=== PATIENT | female | born 1945 | race Caucasian/White ===

== ENCOUNTER 2019-12-23 09:50 | Emergency (ER) | payer MEDICARE, MEDICAID, SELFPAY ==
[2019-12-23 10:09] VITALS: BP 132/86; PULSE 76; RESP 18; TEMP 36.7; O2SAT 97; BMI 36.3
--- NOTE | 2019-12-23 10:12 | XR_ITS ---
EXAMINATION: XR CHEST CLINICAL INFORMATION: Weakness COMPARISON: 10/07/2019 TECHNIQUE: Frontal view of the chest was obtained. FINDINGS: The lungs are well expanded. There is no focal consolidation, edema, or effusion. Bronchial wall thickening is noted. No pneumothorax. The cardiomediastinal silhouette is within normal limits. No acute osseous abnormality. XR/XR chest 1V IMPRESSION: No consolidation. Bronchial wall thickening can be seen with a small airways process such as asthma or atypical/viral infection.
--- NOTE | 2019-12-23 10:12 | ECG_ITS ---
Test Reason : ABD PAIN Blood Pressure : / mmHG Vent. Rate : 058 BPM Atrial Rate : 058 BPM P-R Int : 198 ms QRS Dur : 076 ms QT Int : 486 ms P-R-T Axes : 031 024 095 degrees QTc Int : 477 ms Sinus bradycardia Nonspecific T wave abnormality Abnormal ECG When compared with ECG of 26-JUN-2019 10:36, No significant change was found Referred By: Jacklyn Travis Electronically Signed By:NORRIS INTERIANO MD
--- NOTE | 2019-12-23 10:15 | ED.NAVMDI ---
HPI - Nausea/Vomiting/Diarrhea General Chief complaint: General Medical Stated complaint: SHAKY,BODYACHES,DIARRHEA Time Seen by Provider: 12/23/19 10:11 Source: patient Mode of arrival: ambulatory Limitations: no limitations History of Present Illness MD elicited complaint: nausea and other (body aches, chills) Onset (ago): day(s) (3) Associated nausea: Yes Associated abdominal pain: No Pain consistency: constant Severity: moderate Exacerbating factors: eating Relieving factors: none Associated symptoms: myalgias, fever/chills, loss of appetite, malaise and nausea/vomiting Related Data Previous Rx's Medication Instructions Recorded ondansetron 4 mg PO Q8H PRN #20 tab 12/23/19 Allergies Allergy/AdvReac Type Severity Reaction Status Date / Time quetiapine [Seroquel] Allergy Unknown hives Verified 10/09/19 00:00 solifenacin [From VESICARE] Allergy Unknown DOESNT Verified 12/23/19 10:14 FEEL GOOD DAIRY PRODUCTS Allergy Unknown DIARRHEA Uncoded 10/24/19 14:45 Flonase Allergy Unknown bloody nose Uncoded 10/09/19 00:00 From SEROQUEL Allergy Unknown HIVES Uncoded 10/24/19 14:45 ICE CREAM Allergy Unknown DIARRHEA Uncoded 10/24/19 14:45 Review of Systems Review of Systems: Constitutional : No Weight loss, No Fever, pos Chills, pos malaise ENT/Mouth : No sore throat, No Rhinorrhea Eyes: No Swelling, No Redness Cardiovascular : No Chest Pain, No SOB, NoEdema Respiratory : No Cough, No Sputum, No Wheezing Gastrointestinal : Positive Nausea, noVomiting, no Diarrhea, no abdominal Pain, No Hematochezia, No Melena Genitourinary : No Dysuria, No Urinary Frequency, No Hematuria, No Urgency Musculoskeletal : No joint pain, No Myalgias, No Joint Swelling Skin : No Skin Lesions, No rash Neuro : No Weakness, No Numbness, No Dizziness, No Headache Psych : No Anxiety/Panic, No Depression Heme/Lymph: No Bruising, No Lymphadenopathy Endocrine : No Polyuria, No Polydipsia All other systems reviewed and are negative. Gastrointestinal: Gastrointestinal: Reports nausea PMFSH Past Medical History Attestation statement: The following information was validated with the patient. Medical History (Updated 12/23/19 @ 12:33 by Jacklyn Travis DO) Anxiety Depression GERD (gastroesophageal reflux disease) Hiatal hernia Vitamin D deficiency Surgical History (Updated 12/23/19 @ 10:16 by Jacklyn Travis DO) Hx of cholecystectomy Social History Social History (Updated 12/23/19 @ 10:17 by Jacklyn Travis DO) Alcohol intake: never Smoking Status: Never smoker Use of substances other than those prescribed or required for medical reasons: No Advance Directives: No Advance Directives Information Provided: No Physical Exam Vital Signs: Vital Signs: Last Vital Signs Temp 98.0 F 12/23/19 11:28 Pulse 58 12/23/19 11:28 Resp 24 H 12/23/19 11:28 BP 127/82 12/23/19 11:28 Pulse Ox 96 12/23/19 11:28 Body Mass Index 36.3 Appearance: Alert. Oriented X3. No acute distress. Anxious Eyes: Pupils equal, round and reactive to light. ENT: Pharynx normal. Neck: Normal inspection. Neck supple. CVS: Normal heart rate and rhythm. Pulses normal. Respiratory: No respiratory distress. Breath sounds normal. Abdomen: Soft and nontender. Skin: Skin warm and dry. Normal skin color. Normal skin turgor. Extremities: No lower extremity edema. No calf ttp Neuro: Oriented X 3. No motor deficit. No sensory deficit. Course Course Course Narrative: unremarkable, tolerating PO will send home with precautions, benign abdominal exam MDM - Nausea/Vomiting/Diarrhea MDM Narrative Medical decision making narrative: 74 yo female c/o body aches, malaise and nausea no vomiting/abdominal pain/diarrhea - not toxic, benign abdominal exam at this time will obtain labs, UA, COVID swab, CXR - dispo per results and findings Lab Data Result diagrams: 12/23/19 10:23 12/23/19 10:23 Labs: Lab Results 12/23/19 12/23/19 12/23/19 Range/Units 10:23 10:23 10:23 WBC 5.3 (4.8-10.8) X10*3/uL RBC 4.92 (4.20-5.50) X10*6/uL Hgb 13.6 (12.0-16.0) g/dl Hct 41.7 (37-47) % MCV 84.8 (80-98) fL MCH 27.6 (27.0-33.0) pg MCHC 32.6 (31.0-35.0) g/dl RDW 12.3 (11.0-16.0) % Plt Count 234 (160-400) X10*3/uL MPV 8.8 L (9.4-12.3) fL Immature Gran % (Auto) 0.2 (0.0-0.4) % Neut % (Auto) 50.6 (45-73) % Lymph % (Auto) 39.4 (20-40) % [place] % (Auto) 6.5 (2-11) % Eos % (Auto) 2.5 (0-4) % Baso % (Auto) 0.8 (0-2) % Lymph # (Auto) 2.1 (1.2-4.9) X10*3/uL [place] # (Auto) 0.3 (0.1-1.2) X10*3/uL Eos # (Auto) 0.1 (0.0-0.4) X10*3/uL Baso # (Auto) 0.0 (0.0-0.2) X10*3/uL Abs Immat Gran (auto) 0.01 (0.00-0.03) X10*3/uL Absolute Neuts (auto) 2.7 (2.0-8.3) X10*3/uL Absolute Nucleated RBC 0.000 (0.0-0.012) X10*3/uL Nucleated RBC % (auto) 0.0 (0.0-0.2) /100WBC Hold Blue Top SEE NOTE Sodium 138 (135-145) mmol/L Potassium 3.8 (3.3-5.1) mmol/l Chloride 105 (96-108) mmol/L Carbon Dioxide 23 (22-29) mmol/L Anion Gap 14 (12-20) BUN 13 (9-16) mg/dL Creatinine 1.12 (0.5-1.4) mg/dL Estim Creat Clear Calc 47.7 Estimated GFR 48 Random Glucose 116 H (60-115) mg/dL Calcium 8.7 (8.4-10.2) mg/dL Magnesium 1.9 (1.6-2.6) mg/dL Total Bilirubin 0.6 (0.0-1.0) mg/dL Direct Bilirubin 0.2 (0.0-0.5) mg/dL AST 24 (5-31) U/L ALT 19 (0-31) U/L Alkaline Phosphatase 59 (39-117) U/L Total Protein 6.8 (6.5-8.0) g/dL Albumin 3.9 (3.5-5.0) g/dL Lipase 20 (8-78) U/L Urine Color Urine Appearance Urine pH (5.0-8.0) Ur Specific [place] (1.005-1.025) Urine Protein (NEG-TRACE) MG/DL Urine Glucose (UA) (NEG) MG/DL Urine Ketones (NEG) MG/DL Urine Blood (NEG) Urine Nitrite (NEG) Ur Leukocyte Esterase (NEG) 12/23/19 Range/Units 11:33 WBC (4.8-10.8) X10*3/uL RBC (4.20-5.50) X10*6/uL Hgb (12.0-16.0) g/dl Hct (37-47) % MCV (80-98) fL MCH (27.0-33.0) pg MCHC (31.0-35.0) g/dl RDW (11.0-16.0) % Plt Count (160-400) X10*3/uL MPV (9.4-12.3) fL Immature Gran % (Auto) (0.0-0.4) % Neut % (Auto) (45-73) % Lymph % (Auto) (20-40) % [place] % (Auto) (2-11) % Eos % (Auto) (0-4) % Baso % (Auto) (0-2) % Lymph # (Auto) (1.2-4.9) X10*3/uL [place] # (Auto) (0.1-1.2) X10*3/uL Eos # (Auto) (0.0-0.4) X10*3/uL Baso # (Auto) (0.0-0.2) X10*3/uL Abs Immat Gran (auto) (0.00-0.03) X10*3/uL Absolute Neuts (auto) (2.0-8.3) X10*3/uL Absolute Nucleated RBC (0.0-0.012) X10*3/uL Nucleated RBC % (auto) (0.0-0.2) /100WBC Hold Blue Top Sodium (135-145) mmol/L Potassium (3.3-5.1) mmol/l Chloride (96-108) mmol/L Carbon Dioxide (22-29) mmol/L Anion Gap (12-20) BUN (9-16) mg/dL Creatinine (0.5-1.4) mg/dL Estim Creat Clear Calc Estimated GFR Random Glucose (60-115) mg/dL Calcium (8.4-10.2) mg/dL Magnesium (1.6-2.6) mg/dL Total Bilirubin (0.0-1.0) mg/dL Direct Bilirubin (0.0-0.5) mg/dL AST (5-31) U/L ALT (0-31) U/L Alkaline Phosphatase (39-117) U/L Total Protein (6.5-8.0) g/dL Albumin (3.5-5.0) g/dL Lipase (8-78) U/L Urine Color YELLOW Urine Appearance CLEAR Urine pH 6.5 (5.0-8.0) Ur Specific [place] <= 1.005 (1.005-1.025) Urine Protein NEG (NEG-TRACE) MG/DL Urine Glucose (UA) NEG (NEG) MG/DL Urine Ketones NEG (NEG) MG/DL Urine Blood NEG (NEG) Urine Nitrite NEG (NEG) Ur Leukocyte Esterase NEG (NEG) ECG Data Attestation: I personally reviewed and interpreted this ECG as follows: ECG interpretation date: 12/23/19 ECG interpretation time: 10:49 Interpretation: Rate: 58 Rhythm: sinus bradycardia [place]: normal Normal P waves. Normal [place]. Normal QRS complex. ST T wave : nonspecific qTC: normal prior studies: no acute ischemia The study has been interpreted contemporaneously by me. . Discharge Plan Discharge Clinical Impression: Nausea, Viral infection Patient Disposition: Home, Self-Care Instructions: Acute Nausea and Vomiting (ED), Viral Syndrome (ED) Additional Instructions: return to ED for any worsening symptoms or concerns you were tested for COVID we will call you with results in 2 to 4 days, wear a mask, socially distance Prescriptions: New ondansetron 4 mg tablet,disintegrating 4 mg PO Q8H PRN (Reason: nausea and vomiting) Qty: 20 RF: 0 Referrals: Tavares Rose MD [Primary Care Provider] - 2 days (if not better)
[2019-12-23 10:29] LABS: MANUAL DIFF FLAG NO
[2019-12-23 10:31] LABS: Basophils Percent Auto 0.8 % (0-2); Eosinophils Absolute Auto 0.1 X10*3/uL (0.0-0.4); Eosinophils Percent Auto 2.5 % (0-4); Hematocrit 41.7 % (37-47); Hemoglobin 13.6 g/dl (12.0-16.0); Imm Gran Abs Auto 0.01 X10*3/uL (0.00-0.03); Imm Gran Pct Auto 0.2 % (0.0-0.4); Lymphocytes Absolute Auto 2.1 X10*3/uL (1.2-4.9); Lymphocytes Percent Auto 39.4 % (20-40); Mean Corpuscular HGB Conc 32.6 g/dl (31.0-35.0); Mean Corpuscular Hemoglobin 27.6 pg (27.0-33.0); Mean Corpuscular Volume 84.8 fL (80-98); Mean Platelet Volume 8.8 fL (9.4-12.3); Monocytes Absolute Auto 0.3 X10*3/uL (0.1-1.2); Monocytes Percent Auto 6.5 % (2-11); Neutrophils Absolute Auto 2.7 X10*3/uL (2.0-8.3); Neutrophils Percent Auto 50.6 % (45-73); Platelet Count 234 X10*3/uL (160-400); Red Blood Count 4.92 X10*6/uL (4.20-5.50); Red Cell Distribution Width 12.3 % (11.0-16.0); White Blood Count 5.3 X10*3/uL (4.8-10.8)
[2019-12-23] MEDS: ondansetron HCL 4 MG/2 ML VIAL IVPUSH (10:36)
[2019-12-23] MEDS: 0.9 % Sodium Chloride 1,000 ML 999 ML IVCONT (10:36)
[2019-12-23 11:05] LABS: Alanine Aminotransferase 19 U/L (0-31); Albumin Level 3.9 g/dL (3.5-5.0); Alkaline Phosphatase 59 U/L (39-117); Anion Gap 14 (12-20); Aspartate Amino Transferase 24 U/L (5-31); Bilirubin Direct 0.2 mg/dL (0.0-0.5); Bilirubin Total 0.6 mg/dL (0.0-1.0); Blood Urea Nitrogen 13 mg/dL (9-16); Calcium 8.7 mg/dL (8.4-10.2); Carbon Dioxide 23 mmol/L (22-29); Chloride 105 mmol/L (96-108); Creatinine Clr Calc Pharmacy 47.7; Estimated Glomerular Filt Rate 48; Glucose Random 116 mg/dL (60-115); Lipase 20 U/L (8-78); Magnesium 1.9 mg/dL (1.6-2.6); Potassium 3.8 mmol/l (3.3-5.1); Sodium 138 mmol/L (135-145); Total Protein 6.8 g/dL (6.5-8.0)
[2019-12-23 11:28] VITALS: BP 127/82; PULSE 58; RESP 24; TEMP 36.7; O2SAT 96
--- NOTE | 2019-12-23 11:43 | PC.NURSE ---
Pt updated on plan. Urine sample obtained and sent to lab. Awaiting covid swab and ua results. pt in NO APPARENT DISTRESS. vs.
[2019-12-23 11:47] LABS: Glucose Urine UA NEG (NEG); Leukocyte Esterase Urine NEG (NEG); Nitrite Urine NEG (NEG); PH 6.5 (5.0-8.0); Specific Gravity - Urine <= 1.005 (1.005-1.025); Urine Blood NEG (NEG); Urine Ketones NEG (NEG); Urine Protein NEG (NEG-TRACE)
[2019-12-23 11:48] LABS: Appearance Urine CLEAR; Color Urine YELLOW; UACC Culture Trigger NO
[2019-12-23 14:59] VITALS: BP 130/69; PULSE 57; RESP 18; TEMP 36.9; O2SAT 97
== END 2019-12-23 15:19 | disposition home or self-care (01) ==
PROVIDERS: Emergency Provider Emergency Medicine; PCP Internal Medicine
DX: B34.9 Viral infection, unspecified (principal); M79.10 Myalgia, unspecified site; Z20.828 Contact with and (suspected) exposure to other viral communicable diseases; Z79.899 Other long term (current) drug therapy
CPT/HCPCS: 36415; 71045; 80048; 80076; 81003; 83690; 83735; 85025; 93005; 96361; 96374; 99284; J2405; U0003

== ENCOUNTER 2020-01-03 23:16 | Emergency (ER) | payer MEDICARE, MEDICAID, SELFPAY ==
[2020-01-03 23:21] VITALS: BP 150/89; PULSE 67; RESP 18; TEMP 36.4; O2SAT 95; BMI 35.4
[2020-01-03 23:27] VITALS: BP 150/89; PULSE 84; RESP 18; TEMP 36.4; O2SAT 97
--- NOTE | 2020-01-04 00:08 | CT_ITS ---
EXAMINATION: CT ABDOMEN AND PELVIS WITH CONTRAST CLINICAL INFORMATION: Bilateral lower quadrant pain COMPARISON: 09/19/2016 TECHNIQUE: Multidetector volumetric images were obtained from the superior aspect of the liver through the pubic symphysis following administration 85 mL of Omnipaque 350 intravenous contrast. Sagittal and coronal reformatted images were obtained on the technologist's workstation. Oral contrast: No This CT examination was performed using dose optimization techniques as appropriate, variously including the following: *Automated exposure control *Adjustment of mA and/or kV according to patient size (this includes techniques or standardized protocols for targeted exams where dose is matched to indication/reason for exam; i.e. extremities or head) *Use of iterative reconstruction technique DLP: 817 mGy-cm FINDINGS: LUNG BASES: The visualized lung bases are unremarkable. LIVER, GALLBLADDER, AND BILIARY TREE: The liver is normal in size, shape, and attenuation. No focal hepatic lesion or biliary ductal dilatation is present. Cholecystectomy. PANCREAS: Somewhat heterogeneous enhancement pattern of the pancreas. The area of the pancreatic head/uncinate is lower in attenuation within the remaining pancreatic parenchyma. No ductal dilatation. There is no focal marginated mass. SPLEEN: Unremarkable. ADRENAL GLANDS: Unremarkable. KIDNEYS AND URETERS: The kidneys are normal in size, shape, and attenuation. No hydronephrosis, hydroureter, or calculi seen. No perinephric stranding. BLADDER: The bladder is normally distended. There is diffuse bladder wall thickening. Increased from prior. GASTROINTESTINAL TRACT: Moderate hiatal hernia. Small bowel normal in caliber. No obstruction. Normal appendix. No colonic wall thickening or inflammatory change. Prominent diverticulosis of the sigmoid colon. No diverticulitis. No free air. No free fluid. ABDOMINAL WALL: No significant hernia is appreciated. LYMPH NODES: Normal. VASCULAR: Normal caliber with mild atherosclerotic calcification. PELVIC VISCERA: Uterus is not seen. No adnexal mass. OSSEOUS STRUCTURES: No acute or suspicious osseous abnormality. Mild degenerative changes of the spine. CT/CT abdomen pelvis w con IMPRESSION: Prominent wall thickening of the bladder. This could represent cystitis. Prominent diverticulosis of the sigmoid colon. No diverticulitis. Somewhat heterogeneous appearance of the pancreatic parenchyma with decreased enhancement in the pancreatic head/uncinate. Correlate for pancreatitis.
[2020-01-04 00:09] VITALS: BP 139/58; PULSE 61; RESP 16; TEMP 37; O2SAT 95
[2020-01-04 00:33] LABS: Basophils Absolute Auto 0.1 X10*3/uL (0.0-0.2); Basophils Percent Auto 0.7 % (0-2); Eosinophils Absolute Auto 0.3 X10*3/uL (0.0-0.4); Eosinophils Percent Auto 3.3 % (0-4); Hematocrit 39.5 % (37-47); Imm Gran Abs Auto 0.01 X10*3/uL (0.00-0.03); Imm Gran Pct Auto 0.1 % (0.0-0.4); Lymphocytes Absolute Auto 3.2 X10*3/uL (1.2-4.9); Lymphocytes Percent Auto 37.9 % (20-40); MANUAL DIFF FLAG NO; Mean Corpuscular HGB Conc 32.9 g/dl (31.0-35.0); Mean Corpuscular Volume 85.1 fL (80-98); Mean Platelet Volume 8.6 fL (9.4-12.3); Monocytes Absolute Auto 0.7 X10*3/uL (0.1-1.2); Monocytes Percent Auto 8.7 % (2-11); Neutrophils Absolute Auto 4.1 X10*3/uL (2.0-8.3); Neutrophils Percent Auto 49.3 % (45-73); Platelet Count 249 X10*3/uL (160-400); Red Blood Count 4.64 X10*6/uL (4.20-5.50); Red Cell Distribution Width 12.5 % (11.0-16.0); White Blood Count 8.4 X10*3/uL (4.8-10.8)
--- NOTE | 2020-01-04 00:33 | ED_ITS ---
HPI - Female Genitourinary General Chief complaint: Urogenital-Female Stated complaint: Abd pain Time Seen by Provider: 01/03/20 23:49 Source: patient Mode of arrival: ambulatory Limitations: no limitations History of Present Illness HPI Narrative: Patient comes to emergency room complaining of bilateral lower quadrant pain and pain with urination. All her symptoms have been ongoing for 2 days, patient reports subjective fever, chills, general malaise. Patient states she was recently tested for COVID-19 and heard results were negative. Patient complaining of bilateral back pain, states it started before the urinary symptoms. Patient reports that she has an over reactive bladder, urinating in small amounts, unsure if she is retaining urine Related Data Home Medications Medication Instructions Recorded Confirmed citalopram 40 mg PO BEDTIME 01/03/20 01/03/20 clonidine HCl 0.1 mg PO BEDTIME 01/03/20 01/03/20 risperidone 0.25 mg PO BEDTIME 01/03/20 01/03/20 Previous Rx's Medication Instructions Recorded cefdinir 300 mg PO BID #14 cap 01/04/20 Allergies Allergy/AdvReac Type Severity Reaction Status Date / Time quetiapine [Seroquel] Allergy Unknown hives Verified 01/03/20 23:19 solifenacin [From VESICARE] Allergy Unknown DOESNT Verified 12/23/19 10:14 FEEL GOOD Flonase Allergy Intermediate bloody nose Uncoded 01/03/20 23:19 ICE CREAM Allergy Intermediate DIARRHEA Uncoded 01/03/20 23:19 DAIRY PRODUCTS Allergy Mild DIARRHEA Uncoded 01/03/20 23:19 From SEROQUEL Allergy Mild HIVES Uncoded 01/03/20 23:19 Review of Systems Review of Systems: Constitutional : No Weight loss, No Fever, No Chills, No Night Sweats, No Fatigue, No Malaise ENT/Mouth : No Hearing loss, No Ear Pain, No Nasal Congestion, No Sinus Pain, No Hoarseness, No sore throat, No Rhinorrhea, No Swallowing Difficulty Eyes: No Eye Pain, No Swelling, No Redness, No Foreign Body, No Discharge, No Vision Changes Cardiovascular : No Chest Pain, No SOB, No Dyspnea on Exertion, No Orthopnea, No Edema, No Palpitations Respiratory : No Cough, No Sputum, No Wheezing, No Smoke Exposure, No Dyspnea Gastrointestinal : Patient complaining of bilateral lower quadrant pain, loose stools, no vomiting Genitourinary : no irregular bleeding, No Dysuria, No Urinary Frequency, No Hematuria, No Urinary Incontinence, patient complaining frequency, burning Musculoskeletal : No joint pain, No Myalgias, No Joint Swelling Skin : No Skin Lesions, No rash Neuro : No Weakness, No Numbness, No Paresthesias, No Loss of Consciousness, No Dizziness, No Headache Psych : No Anxiety/Panic, No Depression, No SI/HI/AH/VH, No Social Issues, Heme/Lymph: No Bruising, No Bleeding,No Lymphadenopathy Endocrine : No Polyuria, No Polydipsia, No Temperature Intolerance [facility] Past Medical History Medical History (Updated 01/04/20 @ 02:04 by Tali Rodríguez MD) Anxiety Depression GERD (gastroesophageal reflux disease) Hiatal hernia Overactive bladder Vitamin D deficiency Surgical History (Updated 01/04/20 @ 00:36 by Tali Rodríguez MD) History of partial hysterectomy Hx of cholecystectomy Social History Social History (Updated 12/23/19 @ 10:17 by Jacklyn Travis DO) Alcohol intake: never Smoking Status: Never smoker Smoked in Last 30 Days: No Use of substances other than those prescribed or required for medical reasons: No Advance Directives: No Physical Exam Vital Signs: Vital Signs: Last Vital Signs Temp 98.6 F 01/04/20 01:43 Pulse 59 01/04/20 01:43 Resp 16 01/04/20 01:43 BP 143/64 H 01/04/20 01:43 Pulse Ox 96 01/04/20 01:43 Body Mass Index 35.4 Appearance: Alert. Oriented X3. No acute distress. Eyes: Pupils equal, round and reactive to light. ENT: Pharynx normal. Neck: Normal inspection. Neck supple. No lymph nodes noted. No crepitus CVS: Normal heart rate and rhythm. Pulses normal. Normal S1 and S2 Respiratory: No respiratory distress. Breath sounds normal. No Wheezing. No rales Abdomen: Soft , moderate discomfort to palpation in both lower quadrants, bedside bladder scan shows 151 mL of urine Skin: Skin warm and dry. Normal skin color. Normal skin turgor. Extremities: No lower extremity edema. No lower extremity edema. No Lacerations. No Rash Neuro: Oriented X 3. No motor deficit. No sensory deficit. Moving all extermities. No slurred speech. MDM - Female Genitourinary Lab Data Result diagrams: 01/04/20 00:25 01/04/20 00:25 Labs: Lab Results 01/04/20 01/04/20 01/04/20 Range/Units 00:25 00:25 02:08 WBC 8.4 (4.8-10.8) X10*3/uL RBC 4.64 (4.20-5.50) X10*6/uL Hgb 13.0 (12.0-16.0) g/dl Hct 39.5 (37-47) % MCV 85.1 (80-98) fL MCH 28.0 (27.0-33.0) pg MCHC 32.9 (31.0-35.0) g/dl RDW 12.5 (11.0-16.0) % Plt Count 249 (160-400) X10*3/uL MPV 8.6 L (9.4-12.3) fL Immature Gran % (Auto) 0.1 (0.0-0.4) % Neut % (Auto) 49.3 (45-73) % Lymph % (Auto) 37.9 (20-40) % [place] % (Auto) 8.7 (2-11) % Eos % (Auto) 3.3 (0-4) % Baso % (Auto) 0.7 (0-2) % Lymph # (Auto) 3.2 (1.2-4.9) X10*3/uL [place] # (Auto) 0.7 (0.1-1.2) X10*3/uL Eos # (Auto) 0.3 (0.0-0.4) X10*3/uL Baso # (Auto) 0.1 (0.0-0.2) X10*3/uL Abs Immat Gran (auto) 0.01 (0.00-0.03) X10*3/uL Absolute Neuts (auto) 4.1 (2.0-8.3) X10*3/uL Absolute Nucleated RBC 0.000 (0.0-0.012) X10*3/uL Nucleated RBC % (auto) 0.0 (0.0-0.2) /100WBC Sodium 139 (135-145) mmol/L Potassium 4.3 (3.3-5.1) mmol/l Chloride 103 (96-108) mmol/L Carbon Dioxide 25 (22-29) mmol/L Anion Gap 15 (12-20) BUN 14 (9-16) mg/dL Creatinine 0.94 (0.5-1.4) mg/dL Estim Creat Clear Calc 56.1 Estimated GFR 58 Random Glucose 89 (60-115) mg/dL Calcium 8.8 (8.4-10.2) mg/dL Total Bilirubin 0.3 (0.0-1.0) mg/dL Direct Bilirubin < 0.2 (0.0-0.5) mg/dL AST 19 (5-31) U/L ALT 16 (0-31) U/L Alkaline Phosphatase 68 (39-117) U/L Total Protein 6.7 (6.5-8.0) g/dL Albumin 3.8 (3.5-5.0) g/dL Lipase 32 (8-78) U/L Urine Color YELLOW Urine Appearance HAZY Urine pH 7.0 (5.0-8.0) Ur Specific [place] <= 1.005 (1.005-1.025) Urine Protein NEG (NEG-TRACE) MG/DL Urine Glucose (UA) NEG (NEG) MG/DL Urine Ketones NEG (NEG) MG/DL Urine Blood 2+ H (NEG) Urine Nitrite NEG (NEG) Ur Leukocyte Esterase 1+ H (NEG) Urine RBC 5-9 H (0) /HPF Urine WBC 30-49 H (0-4) /HPF Ur Squamous Epith Cells TRACE /LPF Urine Bacteria TRACE /LPF Imaging Data CT scan - abdomen: Radiologist's impression: FINDINGS: LUNG BASES: The visualized lung bases are unremarkable. LIVER, GALLBLADDER, AND BILIARY TREE: The liver is normal in size, shape, and attenuation. No focal hepatic lesion or biliary ductal dilatation is present. Cholecystectomy. PANCREAS: Somewhat heterogeneous enhancement pattern of the pancreas. The area of the pancreatic head/uncinate is lower in attenuation within the remaining pancreatic parenchyma. No ductal dilatation. There is no focal marginated mass. SPLEEN: Unremarkable. ADRENAL GLANDS: Unremarkable. KIDNEYS AND URETERS: The kidneys are normal in size, shape, and attenuation. No hydronephrosis, hydroureter, or calculi seen. No perinephric stranding. BLADDER: The bladder is normally distended. There is diffuse bladder wall thickening. Increased from prior. GASTROINTESTINAL TRACT: Moderate hiatal hernia. Small bowel normal in caliber. No obstruction. Normal appendix. No colonic wall thickening or inflammatory change. Prominent diverticulosis of the sigmoid colon. No diverticulitis. No free air. No free fluid. ABDOMINAL WALL: No significant hernia is appreciated. LYMPH NODES: Normal. VASCULAR: Normal caliber with mild atherosclerotic calcification. PELVIC VISCERA: Uterus is not seen. No adnexal mass. OSSEOUS STRUCTURES: No acute or suspicious osseous abnormality. Mild degenerative changes of the spine. CT/CT abdomen pelvis w con IMPRESSION: Prominent wall thickening of the bladder. This could represent cystitis. Prominent diverticulosis of the sigmoid colon. No diverticulitis. Somewhat heterogeneous appearance of the pancreatic parenchyma with decreased enhancement in the pancreatic head/uncinate. Correlate for pancreatitis. Discharge Plan Discharge Clinical Impression: Cystitis Urinary tract infection Qualifiers: Urinary tract infection type: site unspecified Hematuria presence: without h ematuria Qualified Code(s): N39.0 - Urinary tract infection, site not specified Patient Disposition: Home, Self-Care Instructions: Dysuria (ED) Additional Instructions: Please follow-up with your primary care physician tomorrow. If you have any worsening or new symptoms, please return to the emergency room or call 911 Prescriptions: New cefdinir 300 mg capsule 300 mg PO BID Qty: 14 RF: 0 No Action clonidine HCl 0.1 mg tablet 0.1 mg PO BEDTIME RF: 0 citalopram 40 mg tablet 40 mg PO BEDTIME RF: 0 risperidone 0.25 mg tablet 0.25 mg PO BEDTIME RF: 0
[2020-01-04 01:03] LABS: Alanine Aminotransferase 16 U/L (0-31); Albumin Level 3.8 g/dL (3.5-5.0); Alkaline Phosphatase 68 U/L (39-117); Anion Gap 15 (12-20); Aspartate Amino Transferase 19 U/L (5-31); Bilirubin Direct < 0.2 mg/dL (0.0-0.5); Bilirubin Total 0.3 mg/dL (0.0-1.0); Blood Urea Nitrogen 14 mg/dL (9-16); Calcium 8.8 mg/dL (8.4-10.2); Carbon Dioxide 25 mmol/L (22-29); Chloride 103 mmol/L (96-108); Creatinine Clr Calc Pharmacy 56.1; Estimated Glomerular Filt Rate 58; Glucose Random 89 mg/dL (60-115); Lipase 32 U/L (8-78); Potassium 4.3 mmol/l (3.3-5.1); Sodium 139 mmol/L (135-145); Total Protein 6.7 g/dL (6.5-8.0)
[2020-01-04] MEDS: iohexoL 350 MG/ML 100 ML INFUS..BTL 85 ML IV (01:24)
[2020-01-04 01:43] VITALS: BP 143/64; PULSE 59; RESP 16; TEMP 37; O2SAT 96
[2020-01-04 02:15] LABS: Appearance Urine HAZY; Color Urine YELLOW; Glucose Urine UA NEG (NEG); Leukocyte Esterase Urine 1+ (NEG); Nitrite Urine NEG (NEG); Specific Gravity - Urine <= 1.005 (1.005-1.025); Urine Blood 2+ (NEG); Urine Ketones NEG (NEG); Urine Protein NEG (NEG-TRACE)
[2020-01-04] MEDS: cefTRIAXone sodium 1 GM in 0.9 % Sodium Chloride 50 ML IV (02:17)
[2020-01-04 02:23] LABS: WBC Urine 30-49 /HPF (0-4)
[2020-01-04 02:24] LABS: Bacteria Urine TRACE /LPF; Squamous Epithelial Cell Urine TRACE /LPF
== END 2020-01-04 03:04 | disposition home or self-care (01) ==
PROVIDERS: Emergency Provider Emergency Medicine; PCP Internal Medicine
DX: N30.00 Acute cystitis without hematuria (principal); Z20.828 Contact with and (suspected) exposure to other viral communicable diseases; Z79.899 Other long term (current) drug therapy
CPT/HCPCS: 36415; 74177; 80048; 80076; 81001; 83690; 85025; 87086; 87147; 96365; 99284; J0696; Q9967

== ENCOUNTER 2020-01-24 13:14 | Outpatient (REF) | payer MEDICARE, MEDICAID, SELFPAY | END 2020-01-24 13:15 | disposition home or self-care (01) | LOC: HO.LAB 13:14 | PROVIDERS: Visit Provider Internal Medicine | DX: Z20.828 Contact with and (suspected) exposure to other viral communicable diseases (principal) | CPT/HCPCS: C9803; U0003 ==

== ENCOUNTER 2020-05-28 09:12 | Outpatient (REF) | payer MEDICARE, MEDICAID, SELFPAY ==
--- NOTE | ~2020-05-28 | MM_ITS ---
EXAMINATION: MM SCREENING DIGITAL BREAST TOMOSYNTHESIS, BILATERAL CLINICAL INFORMATION: Screening. Asymptomatic. The lifetime risk of breast cancer based on the Tyrer-Cuzick Model is 3%. COMPARISON: Mammography: 03/06/2019, 02/28/2018, 12/23/2016 TECHNIQUE: Digital breast tomosynthesis is performed in both the craniocaudal and mediolateral oblique views along with computer-aided detection (CAD). Synthesized 2D images are generated from the tomosynthesis. Additional views are provided: Exaggerated right CC, bilateral MLO. FINDINGS: There are scattered areas of fibroglandular density (ACR BI-RADS breast composition Category b). There are no significant masses, abnormal calcifications, or other abnormalities. There is no developing density. The axilla and skin contours are unremarkable. Breast tissue composition borders on predominantly fatty. There are no significant changes. MM/MM tomosynthesis screening BI IMPRESSION: No mammographic evidence of malignancy. ASSESSMENT: BI-RADS 1: Negative RECOMMENDATION: Routine annual mammography screening. This patient's information was entered into a reminder system with a target due date for their next mammogram.
== END 2020-05-28 09:13 | disposition home or self-care (01) ==
LOC: HO.MAMMO 09:12
PROVIDERS: PCP Internal Medicine; Visit Provider Internal Medicine
DX: Z12.31 Encounter for screening mammogram for malignant neoplasm of breast (principal)
CPT/HCPCS: 77063; 77067

== ENCOUNTER 2020-06-06 08:18 | Outpatient (REF) | payer MEDICARE, MEDICAID, SELFPAY ==
[2020-06-06 09:17] LABS: MANUAL DIFF FLAG NO
[2020-06-06 09:19] LABS: Basophils Absolute Auto 0.1 X10*3/uL (0.0-0.2); Basophils Percent Auto 1.1 % (0-2); Eosinophils Absolute Auto 0.2 X10*3/uL (0.0-0.4); Eosinophils Percent Auto 3.8 % (0-4); Hemoglobin 13.5 g/dl (12.0-16.0); Imm Gran Abs Auto 0.01 X10*3/uL (0.00-0.03); Imm Gran Pct Auto 0.2 % (0.0-0.4); Lymphocytes Absolute Auto 2.5 X10*3/uL (1.2-4.9); Lymphocytes Percent Auto 47.8 % (20-40); Mean Corpuscular HGB Conc 32.1 g/dl (31.0-35.0); Mean Corpuscular Hemoglobin 27.5 pg (27.0-33.0); Mean Corpuscular Volume 85.5 fL (80-98); Mean Platelet Volume 9.2 fL (9.4-12.3); Monocytes Absolute Auto 0.4 X10*3/uL (0.1-1.2); Monocytes Percent Auto 8.2 % (2-11); Neutrophils Percent Auto 38.9 % (45-73); Platelet Count 272 X10*3/uL (160-400); Red Blood Count 4.91 X10*6/uL (4.20-5.50); Red Cell Distribution Width 12.6 % (11.0-16.0); White Blood Count 5.3 X10*3/uL (4.8-10.8)
[2020-06-06 09:47] LABS: Alanine Aminotransferase 15 U/L (0-31); Alkaline Phosphatase 67 U/L (39-117); Anion Gap 12 (12-20); Aspartate Amino Transferase 18 U/L (5-31); Bilirubin Total 0.4 mg/dL (0.0-1.0); Blood Urea Nitrogen 15 mg/dL (9-16); Carbon Dioxide 28 mmol/L (22-29); Chloride 103 mmol/L (96-108); Cholesterol 200 mg/dL; Estimated Glomerular Filt Rate 52; Glucose Fasting 91 mg/dL (60-99); HDL Cholesterol 54 mg/dL; LDL Cholesterol Calculated 124 mg/dl; Potassium 4.3 mmol/L (3.3-5.1); Sodium 139 mmol/L (135-145); Triglycerides 112 mg/dL
[2020-06-06 10:11] LABS: TSH reflex Free T4 1.42 uIU/mL (0.32-4.0); Vitamin D 25-OH Total 48.7 ng/mL (>30)
[2020-06-06 10:16] LABS: Glucose Urine UA NEG (NEG); Leukocyte Esterase Urine 1+ (NEG); Nitrite Urine NEG (NEG); PH 6.5 (5.0-8.0); Specific Gravity - Urine 1.015 (1.005-1.025); UACC Culture Trigger YES; Urine Blood TRACE (NEG); Urine Ketones NEG (NEG); Urine Protein NEG (NEG-TRACE)
[2020-06-06 10:20] LABS: Appearance Urine HAZY; Color Urine YELLOW
[2020-06-06 10:29] LABS: RBC Urine 0-2 /HPF (0); Squamous Epithelial Cell Urine 1+ /LPF
== END 2020-06-06 08:19 | disposition home or self-care (01) ==
LOC: HO.LAB 08:18
PROVIDERS: PCP Internal Medicine; Visit Provider Internal Medicine
DX: I12.9 Hypertensive chronic kidney disease with stage 1 through stage 4 chronic kidney disease, or unspecified chronic kidney disease (principal); N18.31 Chronic kidney disease, stage 3a; K21.9 Gastro-esophageal reflux disease without esophagitis; E78.00 Pure hypercholesterolemia, unspecified; E66.9 Obesity, unspecified; N32.81 Overactive bladder; E55.9 Vitamin D deficiency, unspecified
CPT/HCPCS: 36415; 80053; 80061; 81001; 81003; 82306; 84443; 85025; 87086

== ENCOUNTER 2020-06-23 08:39 | Outpatient (REF) | payer MEDICARE, MEDICAID, SELFPAY ==
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
--- NOTE | 2020-06-23 13:28 | MHC.AU.HAS ---
Hearing Aid Evaluation Date of Visit: 06/23/20 Historical Information: Description of Hearing: Mild to severe SNHL in the right ear. Moderate to severe mixed hearing loss in the left ear. Current personal amplification information, if applicable: [employer]one SCOTT aids with domes (aids look like ReSound aids) Summary: Ms. Vincent reports that her insurance is not longer accepted at [facility] and they will no longer service her hearing aids. Given that [facility] uses proprietary software that we are unable to access, we cannot provide services for Ms. Vincent's current hearing aids. Updated amplification is recommended to facilitate improved communication. She would like to stay with a SCOTT style with domes and is interested in rechargeable aids. Hearing Aid Prescription: Based on the individual?s shared listening needs, communication environments, dexterity, desire for connectivity, and personal preferences, the following prescription for amplification has been made: Right ear: Director Payer: [employer] Model: Audeo P70-R Battery Size: Rechargeable Color: P6 - Silver Maldonado Journeyman Meat Cutter: Size 1 M Type of Dome: Power Left ear: Left ear prescription to be same as Right Hearing Aid above: Director Payer: Phonak Model: Audeo P70-R Battery Size: Rechargeable Color: P6 - Silver Maldonado Journeyman Meat Cutter: Size 1 M Type of Dome: Power Action Taken/Action Needed: Medical Clearance to be requested from PCP/ENT. Hearing Fitting to be scheduled when materials arrive. Checking with insurance to confirm hearing aid eligibility. If it has been less than five years, will submit an online PA for new hearing aids. Primary Diagnosis: H90.3 Bilateral Sensorineural Hearing Loss Secondary Diagnosis: H69.92 Unspecified Eustachian Tube Dysfunction, Left Ear Signature: Provider: Chato Epstein, [facility]
--- NOTE | 2020-06-23 13:31 | MHC.AU.MED ---
Medical Clearance for Hearing Instrumentation Date: 06/24/20 Patient Name: Eugenie Vincent Date of : 1945 Primary Care Provider: Referring Provider: Tavares Rose MD We have seen your patient on 06/24/20 and have determined that they are a candidate for amplification (See accompanying report). Specifically, they would benefit from: Hearing aid use in both ears There is a statute that addresses Medical Evaluation Requirements prior to fitting a patient with a hearing aid. According to [place] statute 265 CMR:6.03(1), (a) General. Except as provided in 265 CMR 6.03(1)(b), a cardiac cath rn shall not sell a hearing aid unless the prospective user has presented to the cardiac cath rn a written statement signed by a licensed physician that states that the patient's hearing loss has been medically evaluated and the patient may be considered a candidate for a hearing aid. The medical evaluation must have taken place within the preceding six months. Please note: Due to the [place] Statute referenced above, we cannot accept a signature other than that of a licensed physician. INTERNATIONAL NURSE and PA signatures cannot be accepted. I am in agreement with the above recommendation. There is no medical contraindication for hearing instrumentation. Physician Signature Date Physician Name (Printed)
== END 2020-06-23 08:40 | disposition home or self-care (01) ==
LOC: HO.SH 08:39
PROVIDERS: Visit Provider Internal Medicine
DX: H90.3 Sensorineural hearing loss, bilateral (principal); H69.92 Unspecified Eustachian tube disorder, left ear
CPT/HCPCS: 92557; 92567; 92591; 92593

== ENCOUNTER 2020-07-29 09:28 | Outpatient (REF) | payer MEDICARE, MEDICAID, SELFPAY | END 2020-07-29 09:29 | disposition home or self-care (01) | LOC: HO.HAP 09:28 | PROVIDERS: Visit Provider Internal Medicine | DX: Z46.1 Encounter for fitting and adjustment of hearing aid (principal); H90.3 Sensorineural hearing loss, bilateral | CPT/HCPCS: V5011; V5020; V5160; V5261 ==

== ENCOUNTER 2020-08-17 10:23 | Outpatient (REF) | payer MEDICARE, MEDICAID, SELFPAY | END 2020-08-17 10:24 | disposition home or self-care (01) | LOC: HO.HAP 10:23 | PROVIDERS: Visit Provider Internal Medicine | DX: Z13.89 Encounter for screening for other disorder (principal) ==

== ENCOUNTER 2020-09-22 10:25 | Outpatient (REF) | payer MEDICARE, MEDICAID, SELFPAY ==
--- NOTE | ~2020-09-22 | MM_ITS ---
EXAMINATION: BONE DENSITOMETRY CLINICAL INDICATION: Asymptomatic menopausal state. COMPARISON: None (current study represents initial baseline exam). TECHNIQUE: Using a [employer] DXA System (software version: 13.1) manufactured by [employer], dual-energy x-ray absorptiometry was performed of the lumbar spine and left hip. The images are of good technical quality. Summary results are attached. FINDINGS: AP SPINE L1-L4: BMD 1.142 g/cm2, Z-score 0.6, T-score -0.3, normal. LEFT FEMUR, NECK: BMD 0.874 g/cm2, Z-score 0.2, T-score -1.2, osteopenia. LEFT FEMUR, TOTAL: BMD 1.017 g/cm2, Z-score 1.2, T-score 0.1, normal. IDENTIFIED RISK FACTORS: Rheumatoid arthritis, renal, recurrent falls, height loss, menopause, hysterectomy, bilateral oophorectomy. HISTORY OF FRACTURE: None listed. MEDICATIONS: Vitamin D. MM/XR DEXA axial skeleton IMPRESSION: 1. DIAGNOSIS: Osteopenia based on the lowest T-score value of -1.2 in the femoral neck applying World Health Organization criteria. 2. 10-YEAR FRACTURE RISK PREDICTION, FRAX: Major osteoporotic fracture (clinical spine, forearm, hip or shoulder) 12.0%. Hip fracture 2.1%. 3. Treatment Recommendations: NOF guidelines recommend consideration for treatment in postmenopausal women and men age 50 and older presenting with the following: -A hip or vertebral (clinical or morphometric) fracture. -T-score less than or equal to -2.5 at the femoral neck or spine after appropriate evaluation to exclude secondary causes. -Low bone mass at the hip or spine and a 10-year fracture probability by FRAX of greater than or equal to 3% for hip fracture or greater than or equal to 20% for major osteoporotic fracture based on the [place] adapted WHO algorithm. 4. Other Recommendations: All treatment decisions require clinical judgment and consideration of individual patient factors, including patient preferences, comorbidities, previous drug use, risk factors not captured in the FRAX model (e.g. frailty, falls, vitamin D deficiency, increased bone turnover, interval significant decline in bone density) and possible under or overestimation of fracture risk by FRAX. Additional medical evaluation for secondary cause of low bone mineral density may be appropriate. FUTURE SCAN RECOMMENDATION: People with diagnosed cases of osteoporosis or at high risk for fracture should have regular bone mineral density tests. For patients eligible for Medicare, routine testing is allowed once every 2 years. The testing frequency can be increased to one year for patients who have rapidly progressing disease, those who are receiving or discontinuing medical therapy to restore bone mass, or have additional risk factors.
== END 2020-09-22 10:26 | disposition home or self-care (01) ==
LOC: HO.MAMMO 10:25
PROVIDERS: PCP Internal Medicine; Visit Provider Internal Medicine
DX: Z13.820 Encounter for screening for osteoporosis (principal); Z78.0 Asymptomatic menopausal state
CPT/HCPCS: 77080

== ENCOUNTER 2020-10-14 15:00 | Outpatient (RCR) | payer MEDICARE, MEDICAID, SELFPAY ==
--- NOTE | 2020-08-18 15:09 | MHC.PT.EP ---
[facility] [place] Office [place] Office [place] Office [address] V[address] [phone] F: [phone] F: [phone] F: [phone] F: [phone] Physical Therapy Plan of Care Date of Evaluation: Date of Surgery: Diagnosis: This is a 75 yo female presenting to skilled PT with a script for L knee pain Assessment: This is a 75 yo female presenting to skilled PT with a script for L knee pain. Patient reports years ago she got nerve damage from working in a [employer]. On top of this she reports a recent fall this June when she missed a step and landed on B knees. She reports that the combination of her back pain and the falls has caused her to now have knee pain on the L and antalgic gait pattern. Pain is located at the medial knee and described as swelling and achy. She has L side low back pain that is achy and sharp at times as well. Assessment reveals pain that ranges up to a 4/10. She demos decreased knee and lumbar ROM, decreased gross BLE strength and core, impaired gait pattern with forward flexed trunk and antalgic patter, impaired patella mobility and lumbar joint mobility as well as gross functional decline with transfers, regular housework and ambulation. Her back pain appears to be making her knee pain worse and would benefit from PT for lumbar, core and BLE's. She is a good candidate for skilled PT 2x/wk for 5wks. Frequency and Duration: The patient will be seen 2x/wk for 5wks Short Term Goals: I in HEP L knee AROM 0 to at least 120 patient will demo proper logroll technique without cuing from PT Discharge Specialist Goals: Patient will demo upright posture without cuing and report no radiating symptoms Patient will demo at least 4/5 BLE strength Patient will demo proper squat and lift techniques without pain Treatment Plan: Modalities to reduce pain, spasms and effusion. Manual therapy to restore motion and function. Therapeutic exercise to improve strength and flexibility. Neuromuscular re-education for posture and balance. Therapeutic activities to return to functional activities of daily living. Electronically signed by: Natali Salguero PT Please sign and return to therapist. Thank you for your referral.
--- NOTE | 2020-11-12 11:38 | MHC.PT.DC ---
[facility] [place] Office [place] Office [place] Office [address] [phone] F: [phone] F: [phone] F: [phone] F: [phone] Physical Therapy Discharge Report Diagnosis: This is a 75 yo female presenting to skilled PT with a script for L knee pain Date of Surgery: Date of Evaluation: 08/18/20 Date of Discharge: 11/12/20 Treatments to Date: 6 Cancellations to Date: 0 No Shows to Date: 0 Discharge Status: Achieved Goals Improved Function Independent with HEP Patient Elected to Stop Discharge Summary: Pt needs v/c with demonstrations to perform exs still, has an HEP to continue at home. Pt reporting at the last tx session that she would like to stop therapy. PT kept chart open for 30 days prior to DC in case patient wanted to return to therapy. Electronically signed by: Natali Salguero PT Please sign and return to therapist. Thank you for your referral.
== END 2021-06-09 13:36 | disposition home or self-care (01) ==
LOC: HO.PTCHIC 15:00
PROVIDERS: PCP Internal Medicine; Visit Provider Internal Medicine
DX: M25.562 Pain in left knee (principal)
CPT/HCPCS: 97110; 97140; 97162; 97530

== ENCOUNTER 2020-10-28 08:01 | Emergency (ER) | payer MEDICARE, MEDICAID, SELFPAY ==
--- NOTE | ~2020-10-28 | XR_ITS ---
EXAMINATION: XR RIBS, RIGHT CLINICAL INFORMATION: Upper rib pain COMPARISON: Previous chest x-rays most recent December 2019 TECHNIQUE: 3 views of the right ribs and one view of the chest were obtained. FINDINGS: The cardiac and mediastinal contours are stable. The lungs are clear. There is no pleural effusion or pneumothorax. There are degenerative changes of the spine. No rib fracture is seen. XR/XR ribs RT min 3V w CXR1V IMPRESSION: No evidence for acute disease in the chest. No rib fracture seen.
--- NOTE | ~2020-10-28 | XR_ITS ---
EXAMINATION: XR THORACIC SPINE XR LUMBAR SPINE CLINICAL INFORMATION: Fall COMPARISON: CT abdomen and pelvis 12/27/2019, chest radiographs 10/07/2019 TECHNIQUE: Thoracic spine 3 views, lumbosacral spine 3 views FINDINGS: Thoracic Spine: No radiographic evidence of acute fracture or subluxation. Mild degenerative changes. Atherosclerosis thoracic aorta. Rounded density right of the right mainstem bronchus. Surgical clips right upper quadrant. Lumbar Spine: 5 lumbar-type vertebral bodies are normal in height and alignment. Degenerative disc disease L4-L5 and L5-S1. Small anterior degenerative osteophytes. Posterior elements are intact. Increased density at the facet joints at the lower lumbar spine most likely due to facet osteoarthropathy. No radiographic evidence of acute fracture or subluxation. XR/XR lumbar spine 2-3V IMPRESSION: 1. No radiographic evidence of acute fracture or subluxation involving the thoracic or lumbar spine. Mild degenerative changes as described above. 2. Rounded density projects over the right upper hilum at the level of the right mainstem bronchus. This could represent the azygos vein seen en face; however, this was not seen on the prior radiographs of the chest and a pulmonary nodule is not excluded. Consider dedicated chest radiographs.
--- NOTE | ~2020-10-28 | XR_ITS ---
EXAMINATION: XR THORACIC SPINE XR LUMBAR SPINE CLINICAL INFORMATION: Fall COMPARISON: CT abdomen and pelvis 12/27/2019, chest radiographs 10/07/2019 TECHNIQUE: Thoracic spine 3 views, lumbosacral spine 3 views FINDINGS: Thoracic Spine: No radiographic evidence of acute fracture or subluxation. Mild degenerative changes. Atherosclerosis thoracic aorta. Rounded density right of the right mainstem bronchus. Surgical clips right upper quadrant. Lumbar Spine: 5 lumbar-type vertebral bodies are normal in height and alignment. Degenerative disc disease L4-L5 and L5-S1. Small anterior degenerative osteophytes. Posterior elements are intact. Increased density at the facet joints at the lower lumbar spine most likely due to facet osteoarthropathy. No radiographic evidence of acute fracture or subluxation. XR/XR thoracic spine 3V IMPRESSION: 1. No radiographic evidence of acute fracture or subluxation involving the thoracic or lumbar spine. Mild degenerative changes as described above. 2. Rounded density projects over the right upper hilum at the level of the right mainstem bronchus. This could represent the azygos vein seen en face; however, this was not seen on the prior radiographs of the chest and a pulmonary nodule is not excluded. Consider dedicated chest radiographs.
[2020-10-28 08:05] VITALS: BP 139/88; PULSE 65; RESP 16; TEMP 36.7; O2SAT 97; BMI 35.9
--- NOTE | 2020-10-28 08:16 | ED_ITS ---
HPI - Fall General Chief Complaint: Fall Stated Complaint: fall - upper back pain Time Seen by Provider: 10/28/20 08:12 Source: patient Mode of arrival: ambulatory Limitations: no limitations History of Present Illness MD complaint: fall Onset (ago): hour(s) (12) Fall from: standing Fall witnessed: yes, by family Place fall occurred: home Loss of consciousness: none Prolonged down time: no Symptoms prior to fall: none Context: tripped/slipped Location of injury: back and other (R posterior ribs) Severity: moderate Quality: dull and aching Associated symptoms (after fall): denies Related Data Home Medications Medication Instructions Recorded Confirmed clonidine HCl 0.1 mg tablet 0.1 mg PO BEDTIME 01/03/20 10/19/20 risperidone 0.25 mg tablet 0.25 mg PO BEDTIME 01/03/20 10/19/20 albuterol sulfate 90 mcg/actuation 2 puff INHALATION QID 02/24/20 10/19/20 aerosol inhaler (ProAir HFA) cholecalciferol (vitamin D3) 25 25 mcg PO DAILY 02/24/20 10/19/20 mcg (1,000 unit) tablet citalopram 40 mg tablet 40 mg PO BEDTIME 03/16/20 10/19/20 Previous Rx's Medication Instructions Recorded loratadine 10 mg tablet 10 mg PO DAILY 90 Days #90 tab 04/07/20 fluticasone propionate 110 1 puff PO BID #12 g 04/25/20 mcg/actuation HFA aerosol inhaler (Flovent HFA) omeprazole 40 mg capsule,delayed 40 mg PO DAILY 30 Days #30 cap 07/16/20 release furosemide 20 mg tablet 20 mg PO DAILY #90 tab 10/19/20 cyclobenzaprine 10 mg tablet 10 mg PO TID PRN #14 tab 10/28/20 lidocaine 4 % topical patch 1 patch TOPICAL DAILY PRN #10 ea 10/28/20 Allergies Allergy/AdvReac Type Severity Reaction Status Date / Time fluticasone [From Flonase] Allergy Unknown bloody nose Verified 10/19/20 14:45 quetiapine [Seroquel] Allergy Unknown hives Verified 10/19/20 14:45 solifenacin [From VESICARE] Allergy Unknown dry mouth, Verified 10/19/20 14:45 doesnt feel good ICE CREAM Allergy Intermediate DIARRHEA Uncoded 10/19/20 14:45 DAIRY PRODUCTS Allergy Mild DIARRHEA Uncoded 10/19/20 14:45 Review of Systems Review of Systems: Constitutional : No Fever, No Chills ENT/Mouth : No Ear Pain, No Hoarseness, No sore throat Eyes: No Eye Pain, No Swelling, No Redness, No Foreign Body Cardiovascular : No Chest Pain, No SOB Respiratory : No Cough, No Dyspnea Gastrointestinal : No Nausea, No Vomiting, No Diarrhea, No abdominal Pain Genitourinary : No Dysuria, No Hematuria Musculoskeletal : no joint pain, No Myalgias, No Joint Swelling, pos back pain, pos R rib pain Skin : No Skin lacerations, No rash Neuro : No Weakness, No Numbness, No Loss of Consciousness, No Dizziness, No Headache Psych : No Anxiety/Panic, No Depression Heme/Lymph: no easy bruising, no Lymphadenopathy Endocrine : No Polyuria, No Polydipsia All other systems reviewed and are negative [facility] Past Medical History Attestation statement: The following information was validated with the patient. Medical History Anxiety Benign essential hypertension Bipolar depression Chronic kidney disease, stage III (moderate) COPD (chronic obstructive pulmonary disease) Depression GERD (gastroesophageal reflux disease) GERD without esophagitis Hearing impairment Hiatal hernia Obesity (BMI 30-39.9) Overactive bladder Post-menopausal Pure hypercholesterolemia Sinusitis Vitamin D deficiency Surgical History History of cataract surgery History of colonoscopy History of partial hysterectomy History of surgery Hx of cholecystectomy Family History Family History Father Stroke Diabetes Mother Myocardial infarction Maternal Grandmother No problems noted. Maternal Grandfather No problems noted. Paternal Grandmother No problems noted. Paternal Grandfather No problems noted. Sister Diabetes Social History Social History Housing: House Alcohol intake: never Patient Tobacco Use Status: Never used Tobacco Advance Directives: Yes Advance Directives Information Provided: Yes Advance Directives on File: No service: No Current occupational status: retired Physical Exam Vital Signs: Vital Signs: Last Vital Signs Temp 98.1 F 10/28/20 08:05 Pulse 65 10/28/20 08:05 Resp 16 10/28/20 08:05 BP 139/88 10/28/20 08:05 Pulse Ox 97 10/28/20 08:05 Body Mass Index 35.9 Appearance: Alert. Oriented X3. No acute distress. Eyes: Pupils equal, round and reactive to light. ENT: Pharynx normal. Neck: Normal inspection. Neck supple. CVS: Normal heart rate and rhythm. Pulses normal. Respiratory: No respiratory distress. Breath sounds normal. Abdomen: Soft and nontender. Back: ttp along R posterior upper ribs no step offs noted, some back pain as well but no steps offs Skin: Skin warm and dry. Normal skin color. Normal skin turgor. Extremities: No lower extremity edema. No calf ttp Neuro: Oriented X 3. No motor deficit. No sensory deficit. Course Course Course Narrative: negative for fracture MDM - Fall MDM Narrative Medical decision making narrative: 75 yo female with hx of anxiety, bipolar, GERD, CKD, COPD here after a fall down two stairs hitting back and R posterior upper ribs - no head strike no AC therapy at this time xrays of lumbar, thoracic and R ribs ordered, dispo per results and findings. Discharge Plan Discharge Clinical Impression: Strain of thoracic back region Patient Disposition: Home, Self-Care Instructions: Thoracic Back Strain (ED) Additional Instructions: return to ED for any worsening symptoms or concerns negative for fracture of thoracic and lumbar spine ?Rounded density projects over the right upper hilum at the level of the right mainstem bronchus. This could represent the azygos vein seen en face REPEAT CHEST XRAY WITH PRIMARY CARE DOCTOR IN 1 WEEK Prescriptions: New cyclobenzaprine 10 mg tablet 10 mg PO TID PRN (Reason: muscle spasm) Qty: 14 RF: 0 lidocaine 4 % adhesive patch,medicated 1 patch topical DAILY PRN (Reason: pain) Qty: 10 RF: 0 No Action loratadine 10 mg tablet 10 mg PO DAILY 90 Days Qty: 90 RF: 0 fluticasone propionate [Flovent HFA] 110 mcg/actuation HFA aerosol inhaler 1 puff PO BID Qty: 12 RF: 5 clonidine HCl 0.1 mg tablet 0.1 mg PO BEDTIME RF: 0 risperidone 0.25 mg tablet 0.25 mg PO BEDTIME RF: 0 cholecalciferol (vitamin D3) 25 mcg (1,000 unit) tablet 25 mcg PO DAILY RF: 0 albuterol sulfate [ProAir HFA] 90 mcg/actuation HFA aerosol inhaler 2 puff inhalation QID RF: 0 citalopram 40 mg tablet 40 mg PO BEDTIME RF: 0 omeprazole 40 mg capsule,delayed release(DR/EC) 40 mg PO DAILY 30 Days Qty: 30 RF: 5 furosemide 20 mg tablet 20 mg PO DAILY Qty: 90 RF: 1 Referrals: Tavares Rose MD [Primary Care Provider] - 1 week
[2020-10-28] MEDS: Lidocaine 4 % Patch ADH..PATCH 1 PATCH TRANSDERMA (09:31)
== END 2020-10-28 10:01 | disposition home or self-care (01) ==
PROVIDERS: Emergency Provider Emergency Medicine; PCP Internal Medicine
DX: S29.012A Strain of muscle and tendon of back wall of thorax, initial encounter (principal); M54.6 Pain in thoracic spine; W10.9XXA Fall (on) (from) unspecified stairs and steps, initial encounter; Y93.9 Activity, unspecified; Y92.9 Unspecified place or not applicable; Y99.9 Unspecified external cause status; Z79.899 Other long term (current) drug therapy
CPT/HCPCS: 71101; 72072; 72100; 99283